=== PATIENT | male | born 1975 | race American Indian/Alaskan Native ===

== ENCOUNTER 2019-06-04 15:58 | Inpatient (IN) | payer BC ==
[2019-06-04] MEDS ORDERED: ASPIRIN 81 MG TAB CHEW PO ONE (16:32)
--- NOTE | 2019-06-04 16:35 | Cat Scan Report ---
CT head/brain wo con INDICATION / CLINICAL INFORMATION: 43 years Male; neuro deficits <6hrs or sx present upon awakening. TECHNIQUE: Routine CT head without contrast. All CT scans at this location are performed using CT dos e reduction for ALARA by means of automated exposure control. COMPARISON: None. FINDINGS: BRAIN / INTRACRANIAL CONTENTS: No acute hemorrhage, mass effect, midline shift, hydrocephalus, or acu te, large territorial infarct. No chronic infarct or atrophy appreciated. No significant white matter abnormality. CRANIOCERVICAL JUNCTION: No significant abnormality. ORBITS: No significant abnormality of visualized orbits. SINUSES / MASTOIDS: No significant abnormality the visualized paranasal sinuses or mastoid air cells. ADDITIONAL FINDINGS: None. IMPRESSION: 1. No focal mass, hemorrhage, hydrocephalus, or acute, large territorial infarct. This exam was performed as part of a code stroke protocol. The exam was completed on 06/04/2019 3:23 P M. The exam was reviewed at 3:[address] Kumar was notified at 3:30 PM. Signer Name: Nitin Smith MD, III Signed: 06/04/2019 4:30 PM Workstation Name: [id number]
[2019-06-04 16:40] LABS: BUN/Creatinine Ratio 10; Basophils % (Auto) 0.8 % (0.0-1.8); Blood Urea Nitrogen 10 mg/dL (9-20); Calcium 9.4 mg/dL (8.4-10.2); Eosinophils # (Auto) 0.2 K/mm3 (0.0-0.4); Eosinophils % (Auto) 4.3 % (0.0-4.3); Hematocrit 41.7 % (35.5-45.6); Hemoglobin 14.2 gm/dl (11.8-15.2); Hemolysis Index 37; Lymphocytes # (Auto) 1.1 K/mm3 (1.2-5.4); Lymphocytes % (Auto) 18.6 % (13.4-35.0); Mean Corpuscular HGB Conc 34 % (32-34); Mean Corpuscular Volume 85 fl (84-94); Monocytes # (Auto) 0.6 K/mm3 (0.0-0.8); Monocytes % (Auto) 10.6 % (0.0-7.3); Platelet Count 202 K/mm3 (140-440); Red Blood Count 4.93 M/mm3 (3.65-5.03); Red Cell Distribution Width 13.4 % (13.2-15.2)
[2019-06-04 16:42] LABS: INR 1.05 (0.87-1.13)
[2019-06-04 16:43] LABS: Partial Thromboplastin Time 26.9 Sec. (24.2-36.6); Thrombin Time 15.6 Sec. (15.1-19.6)
--- NOTE | 2019-06-04 17:03 | Emergency Department Report ---
HPI - General Chief Complaint: Neuro Symptoms/Deficit Time Seen by Provider: 06/04/19 16:31 - HPI HPI: [facility] Tele[facility] Date of Service: 06/04/2019 16:08:27 Impression: RO Acute Ischemic Stroke Comments: Patient with hx of headache and concussion now with improving monocular blurred vision with nausea and left face numbness. Suspect acephalgic migraine but new onset facial numbness never experienced with previous headaches. Discussed with him in regards to iv alteplase and with nihss 1 for facial numbness, he felt more comfortable with conservative therapy rather than thrombolytics given his non disabling paresthesia. Low suspicion for large vessel occlusive disease by clinical assessment. Metrics: Last Known Well: 06/04/2019 15:30:00 [facility] Notification Time: 06/04/2019 16:07:45 Arrival Time: 06/04/2019 15:58:00 Stamp Time: 06/04/2019 16:08:27 Time First Login Attempt: 06/04/2019 16:14:51 Video Start Time: 06/04/2019 16:14:51 Symptoms: head numbness/blurred vision left eye NIHSS Start Assessment Time: 06/04/2019 16:17:00 Patient is not a candidate for tPA. Patient was not deemed candidate for tPA thrombolytics because of Resolved symptoms. Video End Time: 06/04/2019 16:26:00 CT head showed no acute hemorrhage or acute core infarct. Advanced imaging was not obtained as the presentation was not suggestive of Large Vessel Occlusive Disease. ED Physician notified of diagnostic impression and management plan on 06/04/2019 16:27:00 Our recommendations are outlined below. Recommendations: Activate Stroke Protocol Admission/Order Set Stroke/Telemetry Floor Neuro Checks Bedside Swallow Eval DVT Prophylaxis IV Fluids, Normal Saline Head of Bed Below 30 Degrees Euglycemia and Avoid Hyperthermia (PRN Acetaminophen) Antiplatelet Therapy Recommended Recommended Scan: MRI Head MRI Head Without Contrast Lipid Panel to Be Obtained, if Not Done in the Last Three Months Therapies: Physical Therapy, Occupational Therapy, Speech Therapy Assessment When Applicable Dysphaghia Screen: Swallow Evaluation, Bedside NPO Until Swallow Evaluation DVT prophylaxis: Choice of Primary Team Disposition: If needed consider inpatient Teleneurology Follow up Sign Out: Discussed with Emergency Department Provider History of Present Illness: Patient is a 43 year old Male. Patient was brought by private transportation with symptoms of head numbness/blurred vision left eye Patient with acute onset of blurred vision and difficulty with opening left eye. He felt dizziness and tingling in back head. He states vision is blurry in left eye only and at this time no headache. He denies diabetes, hypertension, hld. He takes pain meds since having tooth extraction 1 week ago. He states no headaches but on further questioning admits he had has concussion in hte past and 3 weeks ago had migraine type headache with throbbing head pain, nausea and light sensitivity. CT head showed no acute hemorrhage or acute core infarct. Examination: BP(131/77), Pulse(60), Blood Glucose(96) 1A: Level of Consciousness - Alert; keenly responsive + 0 1B: Ask Month and Age - Both Questions Right + 0 1C: Blink Eyes & Squeeze Hands - Performs Both Tasks + 0 2: Test Horizontal Extraocular Movements - Normal + 0 3: Test Visual Lawson - No Visual Loss + 0 4: Test Facial Palsy (Use Grimace if Obtunded) - Normal symmetry + 0 5A: Test Left Arm Motor Drift - No Drift for 10 Seconds + 0 5B: Test Right Arm Motor Drift - No Drift for 10 Seconds + 0 6A: Test Left Leg Motor Drift - No Drift for 5 Seconds + 0 6B: Test Right Leg Motor Drift - No Drift for 5 Seconds + 0 7: Test Limb Ataxia (FNF/Heel-Leavitt) - No Ataxia + 0 8: Test Sensation - Mild-Moderate Loss: Less Sharp/More Dull + 1 9: Test Language/Aphasia - Normal; No aphasia + 0 10: Test Dysarthria - Normal + 0 11: Test Extinction/Inattention - No abnormality + 0 NIHSS Score: 1 Patient was informed the Neurology Consult would happen via TeleHealth consult by way of interactive audio and video telecommunications and consented to receiving care in this manner. Due to the immediate potential for life-threatening deterioration due to underly ing acute neurologic illness, I spent 35 minutes providing critical care. This time includes time for face to face visit via telemedicine, review of medical records, imaging studies and discussion of findings with providers, the patient and/or family. Dr Yanira Field [facility] ED Past Medical Hx - Past Medical History Previous Medical History?: No - Surgical History Past Surgical History?: No - Social History Smoking Status: Never Smoker Substance Use Type: None - Medications Home Medications: Home Medications Medication Instructions Recorded Confirmed Last Taken Type Hyoscyamine Subl [Levsin Sl 0.125 0.125 mg SL Q6HR PRN #14 tablet 02/21/15 Unknown Rx TAB] Ondansetron [Zofran Odt] 4 mg PO Q4H PRN #20 tab.rapdis 02/21/15 Unknown Rx traMADoL [Ultram] 50 mg PO Q6HR PRN #14 tablet 02/21/15 Unknown Rx ED Review of Systems ROS: Stated complaint: BLURR VISION/DIZZY/LT EYE SHUT Other details as noted in HPI Physical Exam - Physical Exam Vital Signs: Vital Signs 06/04/19 06/04/19 16:28 16:41 Pulse Rate 60 Respiratory 16 Rate Blood Pressure 131/77 119/80 [Right] O2 Sat by Pulse 100 Oximetry ED Course Vital Signs 06/04/19 06/04/19 16:28 16:41 Pulse Rate 60 Respiratory 16 Rate Blood Pressure 131/77 119/80 [Right] O2 Sat by Pulse 100 Oximetry ED Medical Decision Making - Lab Data Result diagrams: 06/04/19 16:13 06/04/19 16:13 Critical care attestation.: If time is entered above; I have spent that time in minutes in the direct care of this critically ill patient, excluding procedure time. ED Disposition Clinical Impression: TIA (transient ischemic attack) Disposition: [id number] OP ADMIT IP TO THIS HOSP Is pt being admited?: Yes Does the pt Need Aspirin: Yes Condition: Stable
--- NOTE | 2019-06-04 17:14 | History and Physical Report ---
History of Present Illness Chief complaint: My vision was blurry and I feel weak History of present illness: 43-year-old male with obesity presents to ED for evaluation. Patient states that he experienced sudden onset left-sided numbness weakness, and blurred vision today while sitting on his couch and watching television. Patient reports symptom onset at 1630 hrs. Patient transported to [facility] via private vehicle for further care and evaluation. Patient seen and evaluated in the emergency department and upon arrival a code stroke was called. Tele-neurology was consulted. Lab and imaging studies reviewed. Patient found to have symptoms that were suspicious for CVA. Patient placed in observation status and admitted to medical floor for further evaluation.. Neurology team consulted in ED. Patient initiated on CVA protocol. Patient denies fever, chills, chest pain, palpitations, syncope, dizziness, loss of bowel/bladder continence, vertigo, loss of consciousness, skin rash, or recent ill contacts. No prior admission for review. No medication listed for reconciliation at time of admission. Past History Past Medical History: other (See HPI) Past Surgical History: No surgical history, Other (Reviewed) Social history: , lives with family. denies: smoking, alcohol abuse, prescription drug abuse Family history: hypertension Medications and Allergies Allergies Allergy/AdvReac Type Severity Reaction Status Date / Time sulfamethoxazole Allergy Rash Verified 02/20/15 20:52 [From Bactrim] trimethoprim [From Bactrim] Allergy Rash Verified 02/20/15 20:52 Home Medications Medication Instructions Recorded Confirmed Last Taken Type Hyoscyamine Subl [Levsin Sl 0.125 0.125 mg SL Q6HR PRN #14 tablet 02/21/15 Unknown Rx TAB] Ondansetron [Zofran Odt] 4 mg PO Q4H PRN #20 tab.rapdis 02/21/15 Unknown Rx traMADoL [Ultram] 50 mg PO Q6HR PRN #14 tablet 02/21/15 Unknown Rx Review of Systems Constitutional: no weight loss, no weight gain, no fever, no chills Ears, nose, mouth and throat: no ear pain, no ear discharge, no decreased hearing, no nasal discharge, no sinus pressure Cardiovascular: no chest pain, no orthopnea, no palpitations, no rapid/irregular heart beat, no edema, no lightheadedness Respiratory: no cough, no cough with sputum, no excessive sputum Gastrointestinal: no abdominal pain, no nausea, no vomiting, no diarrhea, no change in bowel habits Genitourinary Male: no dysuria, no hematuria, no discharge, no urinary frequency, no nocturia, no incontinence Rectal: no pain, no incontinence, no bleeding Musculoskeletal: no neck stiffness, no shooting arm pain, no low back pain, no shooting leg pain Integumentary: no rash, no pruritis, no sores Neurological: weakness, numbness, ataxia, lack of coordination, change in speech, confusion, no head injury, no transient paralysis, no tingling, no convulsions Psychiatric: no anxiety, no memory loss, no change in sleep habits, no insomnia, no change in appetite, no suicidal ideation Endocrine: no heat intolerance, no polyphagia, no polydipsia Hematologic/Lymphatic: no easy bruising, no easy bleeding, no lymphadenopathy, no lymphedema Allergic/Immunologic: no urticaria, no allergic rhinitis, no wheezing, no persistent infections, no anaphylaxis, no angioedema Exam - Constitutional Vitals: Temp Pulse Resp BP Pulse Ox 60 16 119/80 100 06/04/19 16:28 06/04/19 16:28 06/04/19 16:41 06/04/19 16:28 General appearance: Present: no acute distress, well-nourished - EENT Eyes: Present: PERRL ENT: hearing intact, clear oral mucosa - Neck Neck: Present: supple, normal ROM - Respiratory Respiratory effort: normal Respiratory: bilateral: CTA - Cardiovascular Heart Sounds: Present: S1 & S2. Absent: rub, click - Extremities Extremities: pulses symmetrical, No edema Peripheral Pulses: within normal limits - Abdominal General gastrointestinal: Present: soft, non-tender, non-distended, normal bowel sounds Male genitourinary: Present: normal - Integumentary Integumentary: Present: clear, warm, dry - Musculoskeletal Musculoskeletal: gait normal, strength equal bilaterally - Psychiatric Psychiatric: appropriate mood/affect, intact judgment & insight - Neurologic Neurologic: CNII-XII intact, moves all extremities Results - Labs CBC & Chem 7: 06/04/19 16:13 06/04/19 16:13 Labs: Abnormal lab results 06/04/19 Range/Units 16:13 [place] % (Auto) 10.6 H (0.0-7.3) % Lymph # 1.1 L (1.2-5.4) K/mm3 Assessment and Plan - Patient Problems (1) CVA (cerebral vascular accident) Current Visit: Yes Status: Suspected Qualifiers: Laterality of affected vessel: unspecified Plan to address problem: CVA protocol: CT head, neuro check, carotid Doppler, echocardiogram, antiplatelet therapy, PT/OT/speech therapy, lipid panel, statin therapy. Balanced diet increase physical activity at discharge. Tele-neurology consulted in ED, neurology consulted. (2) Obesity (BMI 30.0-34.9) Current Visit: Yes Status: Acute Plan to address problem: Balanced diet, increase physical activity at discharge. (3) DVT prophylaxis Current Visit: Yes Status: Acute Plan to address problem: SCD to bilateral lower extremities while in bed, patient is ambulatory
[2019-06-04] MEDS ORDERED: ONDANSETRON 4 MG ODT TAB PO PRN (17:18)
--- NOTE | 2019-06-04 18:10 | Emergency Department Report ---
ED Neuro Deficit HPI - General Chief Complaint: Neuro Symptoms/Deficit Stated Complaint: BLURR VISION/DIZZY/LT EYE SHUT Time Seen by Provider: 06/04/19 16:31 Source: patient Mode of arrival: Wheelchair Limitations: No Limitations - History of Present Illness Initial Comments: Mr. Schumacher is a healthy 43-year-old male without significant past medical history who presents with sudden onset of left-sided numbness and weakness of the left eyelid blurred vision on the left side, nausea. Also had posterior numbness in the head. He was sitting on the couch reading about the local news with the symptoms suddenly happened. He immediately asked his to drive him to the emergency department. Symptoms occurred 15 minutes prior to arrival. Which would be approximately 4:30 to 445 PM. He is followed by PCP in [place]. He receives regular physical exams. There is family history of hypertension diabetes. 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 He did experience several concussions to his football play. -: Sudden, This evening Location: left face, other (left eye blurry vision) Presenting Symptoms: Present: Blurred/Loss of Vision History of same: No Place: home Severity: mild Improves With: time Worsens With: none On Anticoagulants: No Context: sudden onset Associated Symptoms: denies other symptoms - Related Data Home Medications: Previous Rx's Medication Instructions Recorded Last Taken Type Hyoscyamine Subl [Levsin Sl 0.125 0.125 mg SL Q6HR PRN #14 tablet 02/21/15 Unknown Rx TAB] Ondansetron [Zofran Odt] 4 mg PO Q4H PRN #20 tab.rapdis 02/21/15 Unknown Rx traMADoL [Ultram] 50 mg PO Q6HR PRN #14 tablet 02/21/15 Unknown Rx Allergies/Adverse Reactions: Allergies Allergy/AdvReac Type Severity Reaction Status Date / Time sulfamethoxazole Allergy Rash Verified 02/20/15 20:52 [From Bactrim] trimethoprim [From Bactrim] Allergy Rash Verified 02/20/15 20:52 ED Review of Systems ROS: Stated complaint: BLURR VISION/DIZZY/LT EYE SHUT Other details as noted in HPI Comment: All other systems reviewed and negative Constitutional: denies: fever, malaise Respiratory: denies: cough Cardiovascular: denies: chest pain Gastrointestinal: nausea. denies: abdominal pain Neurological: headache, numbness, paresthesias, other (left eye blurry vision) ED Past Medical Hx - Past Medical History Previous Medical History?: No - Surgical History Past Surgical History?: No - Family History Family history: diabetes, hypertension - Social History Smoking Status: Never Smoker Substance Use Type: None - Medications Home Medications: Home Medications Medication Instructions Recorded Confirmed Last Taken Type Hyoscyamine Subl [Levsin Sl 0.125 0.125 mg SL Q6HR PRN #14 tablet 02/21/15 Unknown Rx TAB] Ondansetron [Zofran Odt] 4 mg PO Q4H PRN #20 tab.rapdis 02/21/15 Unknown Rx traMADoL [Ultram] 50 mg PO Q6HR PRN #14 tablet 02/21/15 Unknown Rx ED Neuro Physical Exam - General Limitations: No Limitations General appearance: alert, in no apparent distress Suspected Stroke: Yes - Head Head exam: Present: atraumatic, normocephalic - Eye Eye exam: Present: normal appearance - ENT ENT exam: Present: mucous membranes moist - Neck Neck exam: Present: normal inspection, full ROM. Absent: tenderness, meningismus - Respiratory Respiratory exam: Present: normal lung sounds bilaterally. Absent: respiratory distress, wheezes, rales, rhonchi, stridor - Cardiovascular Cardiovascular Exam: Present: regular rate, normal rhythm, normal heart sounds. Absent: systolic murmur, diastolic murmur, rubs, gallop - GI/Abdominal GI/Abdominal exam: Present: soft, normal bowel sounds. Absent: distended, tend erness, guarding, rebound - Rectal Rectal exam: Present: deferred - Extremities Exam Extremities exam: Present: normal inspection - Neurological Exam Neurological exam: Present: alert, oriented X3 - NIHSS Assessment Interval: Baseline 1a. Level of Consciousness: alert/keenly responsive 1b. LOC Questions: answers both correctly 1c. LOC Commands: performs tasks correctly 2. Best Gaze: normal 3. Visual: no visual loss 4. Facial Palsy: normal symmetrical movement 5b. Motor Arm Right: no drift 5a. Motor Arm Left: no drift 6a. Motor Leg Left: no drift 6b. Motor Leg Right: no drift 7. Limb Ataxia: absent 8. Sensory: mild/moderate sensory loss 9. Best Language: no aphasia 10. Dysarthria: normal 11. Extinction/Inattention: no abnormality Total Score: 1 Stroke Severity: Minor Stroke - Psychiatric Psychiatric exam: Present: normal affect, normal mood - Skin Skin exam: Present: warm, dry, intact, normal color. Absent: rash ED Course Vital Signs 06/04/19 06/04/19 06/04/19 16:28 16:41 17:25 Pulse Rate 60 60 Respiratory 16 16 Rate Blood Pressure 131/77 119/80 127/73 [Right] O2 Sat by Pulse 100 98 Oximetry - Lab Data Result diagrams: 06/04/19 16:13 06/04/19 16:13 Lab Results 06/04/19 06/04/19 06/04/19 Range/Units 16:13 16:13 16:13 WBC 5.7 (4.5-11.0) K/mm3 RBC 4.93 (3.65-5.03) M/mm3 Hgb 14.2 (11.8-15.2) gm/dl Hct 41.7 (35.5-45.6) % MCV 85 (84-94) fl MCH 29 (28-32) pg MCHC 34 (32-34) % RDW 13.4 (13.2-15.2) % Plt Count 202 (140-440) K/mm3 Lymph % (Auto) 18.6 (13.4-35.0) % [place] % (Auto) 10.6 H (0.0-7.3) % Eos % (Auto) 4.3 (0.0-4.3) % Baso % (Auto) 0.8 (0.0-1.8) % Lymph # 1.1 L (1.2-5.4) K/mm3 [place] # 0.6 (0.0-0.8) K/mm3 Eos # 0.2 (0.0-0.4) K/mm3 Baso # 0.0 (0.0-0.1) K/mm3 Seg Neutrophils % 65.7 (40.0-70.0) % Seg Neutrophils # 3.7 (1.8-7.7) K/mm3 PT 13.8 (12.2-14.9) Sec. INR 1.05 (0.87-1.13) APTT 26.9 (24.2-36.6) Sec. Thrombin Time 15.6 (15.1-19.6) Sec. Sodium 141 (137-145) mmol/L Potassium 4.1 (3.6-5.0) mmol/L Chloride 102.6 (98-107) mmol/L Carbon Dioxide 27 (22-30) mmol/L Anion Gap 16 mmol/L BUN 10 (9-20) mg/dL Creatinine 1.0 (0.8-1.5) mg/dL Estimated GFR > 60 ml/min BUN/Creatinine Ratio 10 % Glucose 96 (75-100) mg/dL POC Glucose (70-105) Calcium 9.4 (8.4-10.2) mg/dL Troponin T < 0.010 (0.00-0.029) ng/mL 06/04/19 06/04/19 Range/Units 16:15 16:31 WBC (4.5-11.0) K/mm3 RBC (3.65-5.03) M/mm3 Hgb (11.8-15.2) gm/dl Hct (35.5-45.6) % MCV (84-94) fl MCH (28-32) pg MCHC (32-34) % RDW (13.2-15.2) % Plt Count (140-440) K/mm3 Lymph % (Auto) (13.4-35.0) % [place] % (Auto) (0.0-7.3) % Eos % (Auto) (0.0-4.3) % Baso % (Auto) (0.0-1.8) % Lymph # (1.2-5.4) K/mm3 [place] # (0.0-0.8) K/mm3 Eos # (0.0-0.4) K/mm3 Baso # (0.0-0.1) K/mm3 Seg Neutrophils % (40.0-70.0) % Seg Neutrophils # (1.8-7.7) K/mm3 PT (12.2-14.9) Sec. INR (0.87-1.13) APTT (24.2-36.6) Sec. Thrombin Time (15.1-19.6) Sec. Sodium (137-145) mmol/L Potassium (3.6-5.0) mmol/L Chloride (98-107) mmol/L Carbon Dioxide (22-30) mmol/L Anion Gap mmol/L BUN (9-20) mg/dL Creatinine (0.8-1.5) mg/dL Estimated GFR ml/min BUN/Creatinine Ratio % Glucose (75-100) mg/dL POC Glucose 97 82 (70-105) Calcium (8.4-10.2) mg/dL Troponin T (0.00-0.029) ng/mL - EKG Data EKG shows normal: sinus rhythm, axis, intervals, QRS complexes, ST-T waves Rate: normal Interpretation: normal EKG - Radiology Data Radiology results: report reviewed CT head no acute findings - Medical Decision Making Mr. Schumacher presents with blurry vision left eye, numbness paresthesias left face and inability to open the left eye with. Also has posterior occipital numbness. Highly appreciate the assistance of neurologist. Differential diagnosis includes: TIA, atypical migraine, he received aspirin. Symptoms rapidly improved while in the emergency department. Admitted to the hospital service for TIA evaluation. TPA was offered by teleneurologist. Now Symptoms Have significantly Improved, TPA Is Not Currently Indicated. Critical care attestation.: If time is entered above; I have spent that time in minutes in the direct care of this critically ill patient, excluding procedure time. ED Disposition Clinical Impression: TIA (transient ischemic attack) Disposition: 09 OP ADMIT IP TO THIS HOSP Is pt being admited?: Yes Does the pt Need Aspirin: No Condition: Stable
--- NOTE | 2019-06-05 10:13 | Progress Note ---
Assessment and Plan Assessment and plan: CVA/TIA. Patient symptoms have resolved. Follow-up echocardiogram and carotid ultrasound. CT scan of the head negative. Consider MRI. Neurology consultation pending. Obesity. Balanced diet, increase physical activity at discharge. History Interval history: No new issues overnight. Hospitalist Physical - Constitutional Vitals: Temp Pulse Resp BP Pulse Ox 98.0 F 57 L 20 130/85 98 06/05/19 05:13 06/05/19 05:13 06/05/19 05:13 06/05/19 05:13 06/05/19 07:47 General appearance: Present: no acute distress, well-nourished - EENT Eyes: Present: PERRL, EOM intact ENT: hearing intact, clear oral mucosa, dentition normal - Neck Neck: Present: supple, normal ROM - Respiratory Respiratory effort: normal Respiratory: bilateral: CTA - Cardiovascular Rhythm: regular Heart Sounds: Present: S1 & S2. Absent: gallop, rub - Extremities Extremities: no ischemia, No edema, Full ROM - Abdominal General gastrointestinal: soft, non-tender, non-distended, normal bowel sounds - Integumentary Integumentary: Present: clear, warm, dry - Neurologic Neurologic: CNII-XII intact, moves all extremities Results - Labs CBC & Chem 7: 06/04/19 16:13 06/04/19 16:13 Labs: Laboratory Last Values WBC 5.7 K/mm3 (4.5-11.0) 06/04/19 16:13 RBC 4.93 M/mm3 (3.65-5.03) 06/04/19 16:13 Hgb 14.2 gm/dl (11.8-15.2) 06/04/19 16:13 Hct 41.7 % (35.5-45.6) 06/04/19 16:13 MCV 85 fl (84-94) 06/04/19 16:13 MCH 29 pg (28-32) 06/04/19 16:13 MCHC 34 % (32-34) 06/04/19 16:13 RDW 13.4 % (13.2-15.2) 06/04/19 16:13 Plt Count 202 K/mm3 (140-440) 06/04/19 16:13 Lymph % (Auto) 18.6 % (13.4-35.0) 06/04/19 16:13 [place] % (Auto) 10.6 % (0.0-7.3) H 06/04/19 16:13 Eos % (Auto) 4.3 % (0.0-4.3) 06/04/19 16:13 Baso % (Auto) 0.8 % (0.0-1.8) 06/04/19 16:13 Lymph # 1.1 K/mm3 (1.2-5.4) L 06/04/19 16:13 [place] # 0.6 K/mm3 (0.0-0.8) 06/04/19 16:13 Eos # 0.2 K/mm3 (0.0-0.4) 06/04/19 16:13 Baso # 0.0 K/mm3 (0.0-0.1) 06/04/19 16:13 Seg Neutrophils % 65.7 % (40.0-70.0) 06/04/19 16:13 Seg Neutrophils # 3.7 K/mm3 (1.8-7.7) 06/04/19 16:13 PT 13.8 Sec. (12.2-14.9) 06/04/19 16:13 INR 1.05 (0.87-1.13) 06/04/19 16:13 APTT 26.9 Sec. (24.2-36.6) 06/04/19 16:13 Thrombin Time 15.6 Sec. (15.1-19.6) 06/04/19 16:13 Sodium 141 mmol/L (137-145) 06/04/19 16:13 Potassium 4.1 mmol/L (3.6-5.0) 06/04/19 16:13 Chloride 102.6 mmol/L (98-107) 06/04/19 16:13 Carbon Dioxide 27 mmol/L (22-30) 06/04/19 16:13 Anion Gap 16 mmol/L 06/04/19 16:13 BUN 10 mg/dL (9-20) 06/04/19 16:13 Creatinine 1.0 mg/dL (0.8-1.5) 06/04/19 16:13 Estimated GFR > 60 ml/min 06/04/19 16:13 BUN/Creatinine Ratio 10 % 06/04/19 16:13 Glucose 96 mg/dL (75-100) 06/04/19 16:13 POC Glucose 82 (70-105) 06/04/19 16:31 Calcium 9.4 mg/dL (8.4-10.2) 06/04/19 16:13 Troponin T < 0.010 ng/mL (0.00-0.029) 06/04/19 16:13 Active Medications - Current Medications Current Medications: Generic Name Dose Route Start Last Admin Trade Name Freq PRN Reason Stop Dose Admin Ondansetron HCl 4 mg 06/04/19 17:18 Zofran Odt PO Q4H PRN nausea/vomiting
[2019-06-05] MEDS ORDERED: MECLIZINE 25 MG TAB PO PRN (13:10)
--- NOTE | 2019-06-05 18:00 | Vascular Lab Report ---
"DUPLEX DOPPLER ULTRASOUND CAROTID, BILATERAL INDICATION / CLINICAL INFORMATION: CVA. Slurred speech with left-sided numbness. COMPARISON: None available. FINDINGS: RIGHT CAROTID PLAQUE ESTIMATE: Minimal. CCA velocity: 109.2 cm/sec. ICA peak systolic velocity: 93.8 cm/sec. ICA/CCA PSV Ratio: 0.86. Right Vertebral Artery: Antegrade flow. LEFT CAROTID PLAQUE ESTIMATE: Minimal. CCA velocity: 122.3 cm/sec. ICA peak systolic velocity: 78.1 cm/sec. ICA/CCA PSV Ratio: 0.64. Left Vertebral Artery: Antegrade flow. IMPRESSION: 1. Right Internal Carotid Artery: Less than 50% diameter stenosis. 2. Left Internal Carotid Artery: Less than 50% diameter stenosis. Velocity criteria are extrapolated from diameter data as defined by the Society of Radiologists in Ul trasound Consensus Conference, Radiology 2003; 229;340-346. Degree of || ICA PSV || Plaque || ICA/CCA Stenosis (%) || (cm/sec) || estimate (%) || PSV Ratio - Normal...............<125..............None.................<2.0 - <50....................<125..............<50....................<2.0 - 50-69................125-230.........>50....................2.0-4.0 - >70 but <100....>230..............>50....................>4.0 - Near...................High, low, .....visible................variable occlusion or none - Total...................None.............visible;................N/A occlusion no lumen Signer Name: Josh Pratt MD Signed: 06/05/2019 5:56 PM Workstation Name: [id number]"
--- NOTE | 2019-06-05 18:21 | Consultation ---
History of Present Illness Consult date: 06/05/19 Reason for Consult: monocular blurred vision, left face numbness Chief complaint: Left-sided blurred vision, left face numbness History of present illness: Patient is a 43-year-old man with no significant past medical history. Yesterday, the patient was watching TV when he sent sudden onset of drooping of the left eyelid, followed by blurred vision of the left eye. He describes symptoms similar to having a curtain pulled over his left eye. Patient was also complaining of intermittent dizziness of the time. He was brought to [facility] for further evaluation. He was evaluated by telemetry neurologist, however was not felt to be a good candidate for TPA, due to NIH of 1 for left facial numbness. 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 He denies a chronic history of headache or migraines, however states that over the past 1- 2 weeks he has had mild headaches. Headaches over the past 1-2 weeks of an mostly in the occipital region, no phonophobia or photophobia. Past History Past Medical History: other (See HPI) Past Surgical History: No surgical history, Other (Reviewed) Social history: , lives with family. denies: smoking, alcohol abuse, prescription drug abuse Family history: hypertension Medications and Allergies Allergies Allergy/AdvReac Type Severity Reaction Status Date / Time sulfamethoxazole Allergy Rash Verified 02/20/15 20:52 [From Bactrim] trimethoprim [From Bactrim] Allergy Rash Verified 02/20/15 20:52 Home Medications Medication Instructions Recorded Confirmed Last Taken Type Hyoscyamine Subl [Levsin Sl 0.125 0.125 mg SL Q6HR PRN #14 tablet 02/21/15 Unknown Rx TAB] Ondansetron [Zofran Odt] 4 mg PO Q4H PRN #20 tab.rapdis 02/21/15 Unknown Rx traMADoL [Ultram] 50 mg PO Q6HR PRN #14 tablet 02/21/15 Unknown Rx Active Meds: Active Medications Meclizine HCl (Antivert) 25 mg PO Q8H PRN PRN Reason: Vertigo Last Admin: 06/05/19 13:23 Dose: 25 mg Documented by: Ondansetron HCl (Zofran Odt) 4 mg PO Q4H PRN PRN Reason: nausea/vomiting Review of Systems All systems: negative Neurological: numbness, loss of vision Physical Examination - Vital Signs Vital Signs: Vital Signs Pulse Resp BP Pulse Ox 60 16 131/77 100 06/04/19 16:28 06/04/19 16:28 06/04/19 16:28 06/04/19 16:28 - Physical Exam Narrative exam: Patient is alert, awake, oriented x4, follows complex commands. PERRL, EOMI, VFF, no facial weakness noted, tongue midline, b/l intact to LT. No dysarthria or aphasia noted. 5/5 strength in all extremities. B/l intact to LT. B/l intact to FTN and HTS. 2+ reflexes throughout. - Constitutional General appearance: comfortable - EENT EENT: Present: ATNC, PERRL, mucous membranes moist, hearing intact, vision intact - Respiratory Respiratory: Present: lungs clear, normal breath sounds - Cardiovascular Cardiovascular: Present: regular rate, normal S1, normal S2 Extremities: Present: no clubbing, cyanosis, no inflammation - Gastrointestinal Gastrointestinal: Present: normoactive bowel sounds, soft, non-tender - Integumentary Integumentary: Present: normal - Musculoskeletal Musculoskeletal: Present: no fluid collection, no pain - Psychiatric Psychiatric: Present: mood/affect appropriate - Level of Consciousness 1a. Level of Consciousness: alert/keenly responsive - LOC Questions 1b. LOC Questions: answers both correctly - LOC Command 1c. LOC Commands: performs tasks correctly - Best Gaze 2. Best Gaze: normal - Visual 3. Visual: no visual loss - Facial Palsy 4. Facial Palsy: normal symmetrical movement - Motor Arm 5a. Motor Arm Left: no drift 5b. Motor Arm Right: no drift - Motor Leg 6a. Motor Leg Left: no drift 6b. Motor Leg Right: no drift - Limb Ataxia 7. Limb Ataxia: absent - Sensory 8. Sensory: normal - Best Language 9. Best Language: no aphasia - Dysarthria 10. Dysarthria: normal - Extinction and Inattention 11. Extinction/Inattention: no abnormality - Scoring Total Score: 0 Stroke Severity: No Stroke Symptoms Results - Laboratory Findings CBC and BMP: 06/04/19 16:13 06/04/19 16:13 Abnormal Lab Findings: Abnormal Labs 06/04/19 16:13 [place] % (Auto) 10.6 H Lymph # 1.1 L Assessment and Plan Patient is a 43-year-old man with no significant past medical history, who p/w blurry vision of the left eye and left facial numbness, which resolved. According the patient's clinical findings, discussed possible that the patient has had a TIA with symptoms resembling amaurosis fugax. Alternatively, the patient may have had a migraine with visual symptoms, however this is less likely as the patient does not have a previous history of migraines. Plan: 1. Possible TIA: - MRI brain pending. CT head: No acute abnormality. Carotid ultrasound: No significant stenosis. - Echo pending - Check CTA head and neck to rule out dissection - Continue ASA - Continue statin. Goal LDL <70 - Telemetry monitoring while in house. - PT/OT/ST. - DVT prophylaxis: Recommend Lovenox. 2. Blood pressure: - Recommend target normotension, as patient's symptoms have resolved. - Will continue to monitor patient Thank you for allowing me to take part in the care of this patient. Jv Goodman MD Neurology
[2019-06-05 19:04] LABS: Chol/HDL Ratio 2.58 %
[2019-06-06] MEDS: ASPIRIN EC 81 MG TAB PO SCH (09:17)
[2019-06-06] MEDS ORDERED: ASPIRIN EC 81 MG TAB PO SCH (10:00)
--- NOTE | 2019-06-06 13:40 | Progress Note ---
Assessment and Plan Patient is a 43-year-old man with no significant past medical history, who p/w blurry vision of the left eye and left facial numbness, which resolved. According the patient's clinical findings, he has had an acute ischemic stroke.. Plan: 1. Possible TIA: - MRI brain: Left thalamic acute infarct CT head: No acute abnormality. Carotid ultrasound: No significant stenosis. - Echo: EF 55-60%, LA normal size, bubble study -ve. - Check CTA head and neck to rule out dissection- Pending - Continue ASA - Continue statin. Goal LDL <70. LDL 84. - Telemetry monitoring while in house. - PT/OT/ST. - DVT prophylaxis: Recommend Lovenox. 2. Blood pressure: - Recommend target normotension, as patient's symptoms have resolved. - Will continue to monitor patient Thank you for allowing me to take part in the care of this patient. Jv Goodman MD Neurology Subjective Date of service: 06/06/19 Principal diagnosis: Stroke Interval history: No acute events overnight Objective - Exam Narrative Exam: Patient is alert, awake, oriented x4, follows complex commands. PERRL, EOMI, VFF, no facial weakness noted, tongue midline, b/l intact to LT. No dysarthria or aphasia noted. 5/5 strength in all extremities. B/l intact to LT. B/l intact to FTN and HTS. 2+ reflexes throughout. - Vital Sign Vital Signs - 12hr 06/06/19 06/06/19 04:03 07:56 Temperature 97.9 F Pulse Rate 64 Respiratory 18 Rate Blood Pressure 108/65 O2 Sat by Pulse 97 97 Oximetry - General Apperance Constitutional: comfortable - EENT EENT: ATNC, PERRL, mucous membranes moist, hearing intact, vision intact - Respiratory Respiratory: lungs clear, normal breath sounds - Cardiovascular Cardiovascular: regular rate, normal S1, normal S2 Extremities: no clubbing, cyanosis, no inflammation - Gastrointestinal Gastrointestinal: normoactive bowel sounds, soft, non-tender - Integumentary Integumentary: normal - Musculoskeletal Musculoskeletal: no fluid collection, no pain - Psychiatric Psychiatric: mood/affect appropriate - Laboratory Findings CBC and BMP: 06/04/19 16:13 06/04/19 16:13 Abnormal Lab Findings: Abnormal Labs 06/04/19 16:13 [place] % (Auto) 10.6 H Lymph # 1.1 L
--- NOTE | 2019-06-06 13:52 | Magnetic Resonance Report ---
MRI BRAIN 06/06/2019 INDICATION / CLINICAL INFORMATION: blurred vision, numness left side of face. TECHNIQUE: Multiplanar, multisequence MR images of the brain were obtained. COMPARISON: CT brain 06/04/2019 FINDINGS: BRAIN / INTRACRANIAL CONTENTS: Unenhanced MR images of the brain demonstrate a 9 mm focus of restrict ed diffusion in the medial aspect of the left thalamus, consistent with acute ischemic injury. No oth er areas of acute ischemic change are present. Ventricles and sulci are normal in size and shape. There is no evidence of hemorrhage or mass. The br ain parenchyma is otherwise well preserved for age. There are no abnormal extra-axial fluid collections. EXTRACRANIAL: Unremarkable CRANIOCERVICAL JUNCTION: No significant abnormality. VASCULAR FLOW-VOIDS: No significant abnormality. IMPRESSION: Acute/recent 9 mm left thalamic infarct. Otherwise the exam. Signer Name: Sven Mijares MD Signed: 06/06/2019 1:47 PM Workstation Name: [id number]
--- NOTE | 2019-06-07 03:33 | Progress Note ---
Assessment and Plan Assessment and plan: Acute ischemic stroke MRI shows acute left thalamic infarct Admitted to med floor Aspirin neurology following discussed with Dr. Goodman, neuro. he ordered CT Angio head and neck Obesity I counseled him on diet and exercise Patient not stable to dc since workup incomplete History Interval history: Patient presented with blurred vision left eye and left facial numbness Hospitalist Physical - Physical exam Narrative exam: GEN: Not in acute distress, lying in bed,obese HEENT: Normocephalic, atraumatic, Neck: supple, No JVD Lungs: Clear to auscultation bilaterally, no wheeze, heart;S1 and S2 reg, no murmurs Abd:soft, non tender, non distended, normal bowel sounds Ext: No edema, no clubbing, no cyanosis Neuro: AAO X 3, moves all ext - Constitutional Vitals: Temp Pulse Resp BP Pulse Ox 98.2 F 64 16 138/70 96 06/06/19 21:04 06/06/19 21:04 06/06/19 21:04 06/06/19 21:04 06/06/19 21:04 General appearance: Present: no acute distress, obese Results - Labs CBC & Chem 7: 06/04/19 16:13 06/04/19 16:13 Labs: Laboratory Last Values WBC 5.7 K/mm3 (4.5-11.0) 06/04/19 16:13 RBC 4.93 M/mm3 (3.65-5.03) 06/04/19 16:13 Hgb 14.2 gm/dl (11.8-15.2) 06/04/19 16:13 Hct 41.7 % (35.5-45.6) 06/04/19 16:13 MCV 85 fl (84-94) 06/04/19 16:13 MCH 29 pg (28-32) 06/04/19 16:13 MCHC 34 % (32-34) 06/04/19 16:13 RDW 13.4 % (13.2-15.2) 06/04/19 16:13 Plt Count 202 K/mm3 (140-440) 06/04/19 16:13 Lymph % (Auto) 18.6 % (13.4-35.0) 06/04/19 16:13 [place] % (Auto) 10.6 % (0.0-7.3) H 06/04/19 16:13 Eos % (Auto) 4.3 % (0.0-4.3) 06/04/19 16:13 Baso % (Auto) 0.8 % (0.0-1.8) 06/04/19 16:13 Lymph # 1.1 K/mm3 (1.2-5.4) L 06/04/19 16:13 [place] # 0.6 K/mm3 (0.0-0.8) 06/04/19 16:13 Eos # 0.2 K/mm3 (0.0-0.4) 06/04/19 16:13 Baso # 0.0 K/mm3 (0.0-0.1) 06/04/19 16:13 Seg Neutrophils % 65.7 % (40.0-70.0) 06/04/19 16:13 Seg Neutrophils # 3.7 K/mm3 (1.8-7.7) 06/04/19 16:13 PT 13.8 Sec. (12.2-14.9) 06/04/19 16:13 INR 1.05 (0.87-1.13) 06/04/19 16:13 APTT 26.9 Sec. (24.2-36.6) 06/04/19 16:13 Thrombin Time 15.6 Sec. (15.1-19.6) 06/04/19 16:13 Sodium 141 mmol/L (137-145) 06/04/19 16:13 Potassium 4.1 mmol/L (3.6-5.0) 06/04/19 16:13 Chloride 102.6 mmol/L (98-107) 06/04/19 16:13 Carbon Dioxide 27 mmol/L (22-30) 06/04/19 16:13 Anion Gap 16 mmol/L 06/04/19 16:13 BUN 10 mg/dL (9-20) 06/04/19 16:13 Creatinine 1.0 mg/dL (0.8-1.5) 06/04/19 16:13 Estimated GFR > 60 ml/min 06/04/19 16:13 BUN/Creatinine Ratio 10 % 06/04/19 16:13 Glucose 96 mg/dL (75-100) 06/04/19 16:13 POC Glucose 82 (70-105) 06/04/19 16:31 Calcium 9.4 mg/dL (8.4-10.2) 06/04/19 16:13 Troponin T < 0.010 ng/mL (0.00-0.029) 06/04/19 16:13 Triglycerides 143 mg/dL (2-149) 06/05/19 18:27 Cholesterol 150 mg/dL (50-199) 06/05/19 18:27 LDL Cholesterol Direct 84 mg/dL (50-130) 06/05/19 18:27 HDL Cholesterol 58 mg/dL (40-59) 06/05/19 18:27 Cholesterol/HDL Ratio 2.58 % 06/05/19 18:27 Active Medications - Current Medications Current Medications: Generic Name Dose Route Start Last Admin Trade Name Freq PRN Reason Stop Dose Admin Aspirin 81 mg 06/05/19 18:28 06/06/19 09:17 Halfprin Ec PO 81 mg QDAY ARVIND Administration Atorvastatin Calcium 40 mg 06/05/19 22:00 06/06/19 22:50 Lipitor PO 40 mg QHS ARVIND Administration Meclizine HCl 25 mg 06/05/19 13:10 06/05/19 13:23 Antivert PO 25 mg Q8H PRN Administration Vertigo Ondansetron HCl 4 mg 06/04/19 17:18 Zofran Odt PO Q4H PRN nausea/vomiting
--- NOTE | 2019-06-07 10:28 | Cat Scan Report ---
CTA head with intravenous contrast CLINICAL HISTORY: TIA. MRI brain 06/06/2019 demonstrates a small infarctions in the medial aspect of the left thalamus. TECHNIQUE: 0.625 mm thick contiguous axial scans were obtained from the skull base to the skull vertex during ra pid bolus administration of intravenous contrast material. Multiplanar reconstructions were produced in the coronal and sagittal planes. In addition 3 plane MIP instructions were produced and reviewed f or this report. The axial source images and reconstructed images were reviewed for this report. All CT scans at this location are performed using CT dose reduction for ALARA by means of automated e xposure control. FINDINGS: The caliber of the intracranial vessels is normal throughout. There is no indication of intracranial stenosis or large vessel occlusion. There is no indication of vasculitis. There is no evidence of aneurysm or other vascular malformation. Dural venous sinuses are well demonstrated on this study. There is no indication of dural sinus throm bosis. Internal cerebral veins and vein of Robin have a normal appearance. IMPRESSION: No abnormality identified on CTA head. CONTRAST DOSE REPORT: Omnipaque 350: 100 ml administered intravenously. Signer Name: Ashwin Sheriff MD Signed: 06/07/2019 10:24 AM Workstation Name: [id number]
--- NOTE | 2019-06-07 11:00 | Cat Scan Report ---
CTA neck without and with intravenous contrast material CLINICAL HISTORY: TIA MRI brain dated 06/06/2019 demonstrated subacute infarction in the medial aspect of the left wrist . TECHNIQUE: Following acquisition of a timing bolus 0.625 mm thick contiguous axial scans were obtained from aort ic arch to the skull base during rapid bolus intravenous contrast infusion. In addition to evaluation of axial source images multiplanar reconstructions were produced and reviewed for this report. 3 jules ne MIP reconstructions were produced and reviewed. FINDINGS: Thoracic aorta: No abnormalities are seen along the visualized portions of the thoracic aorta or the origins of the great vessels. Right carotid artery: Right common carotid artery, right carotid bifurcation and cervical portions of the right internal carotid artery all have a normal appearance. There is no indication of atheroscle rotic disease. Left carotid artery: Left common carotid artery, left carotid bifurcation and cervical portions of th e left internal carotid artery all have a normal appearance. There is no indication of atheroscleroti c disease. Posterior circulation: Mild dominance of the left vertebral artery is noted. There is no indication o f atherosclerotic disease along the course of the vertebral arteries. Both vertebral arteries contrib terrence to the basilar artery origin. Visualized portions of the proximal basilar artery have an unremark able appearance. The degree of stenosis, if any, is determined utilizing NASCET like criteria. In this case there is no indication of hemodynamically significant stenosis at the carotid bifurcations or elsewhere. Thyroid gland is enlarged in size and heterogeneous in attenuation consistent with multinodular goite r. Evaluation of the nonvascular soft tissue structures reveal no additional abnormality. There is no in dication of cervical lymphadenopathy. No abnormalities are seen along the course of the airway. Visua lized portions of the parotid glands and the submandibular salivary glands have a normal appearance. Evaluation of the lung apices reveals no evidence of lung nodule or infiltrate. Evaluation of the cer vical spine revealed no significant abnormalities. IMPRESSION: 1. No indication of hemodynamically significant stenosis at the carotid bifurcations or elsewhere. 2. Abnormal thyroid gland. Suspect multinodular thyroid goiter. Contrast dose report: Omnipaque 350: 100 ml, administered intravenously All CT examinations performed at this facility utilize modulated dose reduction, iterative reconstruc tion or weight-based dosing, as appropriate, to obtain a radiation dose which is as low as can reason ably be achieved. Signer Name: Ashwin Sheriff MD Signed: 06/07/2019 10:55 AM Workstation Name: [id number]
[2019-06-07] MEDS: ASPIRIN EC 81 MG TAB PO SCH (13:19)
--- NOTE | 2019-06-07 13:52 | Progress Note ---
Assessment and Plan Patient is a 43-year-old man with no significant past medical history, who p/w blurry vision of the left eye and left facial numbness, which resolved. According the patient's clinical findings, he has had an acute ischemic stroke.. Plan: 1. Stroke: - MRI brain: Left thalamic acute infarct CT head: No acute abnormality. Carotid ultrasound: No significant stenosis. - Echo: EF 55-60%, LA normal size, bubble study -ve. - CTA head and neck: no significant stenosis - Continue ASA - Recommend dual antiplatelet therapy for 30 days, with ASA 81mg daily and Plavix 75mg daily, after which plavix can be stopped. - Continue statin. Goal LDL <70. LDL 84. - Etiology of stroke is cryptogenic, therefore recommend for long-term cardiac monitoring outpatient with 30-day MCOT and ILR. - Follow up with neurology as outpatient in 4 weeks. - Telemetry monitoring while in house. - PT/OT/ST. - DVT prophylaxis: Recommend Lovenox. 2. Blood pressure: - Recommend target normotension, as patient's symptoms have resolved. - Will sign off. Please call with any questions. Thank you for allowing me to take part in the care of this patient. Jv Goodman MD Neurology Subjective Date of service: 06/07/19 Principal diagnosis: Stroke Interval history: No acute events overnight Objective - Exam Narrative Exam: Patient is alert, awake, oriented x4, follows complex commands. PERRL, EOMI, VFF, no facial weakness noted, tongue midline, b/l intact to LT. No dysarthria or aphasia noted. 5/5 strength in all extremities. B/l intact to LT. B/l intact to FTN and HTS. 2+ reflexes throughout. - Vital Sign Vital Signs - 12hr 06/07/19 04:12 Temperature 98.0 F Pulse Rate 64 Respiratory 16 Rate Blood Pressure 110/62 O2 Sat by Pulse 98 Oximetry - General Apperance Constitutional: comfortable - EENT EENT: ATNC, PERRL, mucous membranes moist, hearing intact, vision intact - Respiratory Respiratory: lungs clear, normal breath sounds - Cardiovascular Cardiovascular: regular rate, normal S1, normal S2 Extremities: no peripheral edema bilat, no inflammation, no ischemia or petechiae - Gastrointestinal Gastrointestinal: normoactive bowel sounds, soft, non-tender - Integumentary Integumentary: normal - Musculoskeletal Musculoskeletal: no fluid collection, no pain - Psychiatric Psychiatric: mood/affect appropriate - Laboratory Findings CBC and BMP: 06/04/19 16:13 06/04/19 16:13 Abnormal Lab Findings: Abnormal Labs 06/04/19 16:13 [place] % (Auto) 10.6 H Lymph # 1.1 L
[2019-06-07] MEDS ORDERED: CLOPIDOGREL 75 MG TAB PO SCH (14:00)
--- NOTE | 2019-06-07 14:17 | Discharge Summary ---
Providers - Providers Date of Admission: 06/06/19 16:14 Date of discharge: 06/07/19 Attending physician: EVELYN DE LEON 06/04/19 17:18 Consult to Physician [CONS] Routine Comment: Consulting Provider: CONNOR DANIELS Physician Instructions: Reason For Exam: cva/atypical migraine/[place] Palsy 06/06/19 16:01 Occupational Therapy Evaluate and Treat [CONS] Routine Comment: Reason For Exam: stroke Speech Therapy Evaluation and Treat [CONS] Routine Reason For Exam: stroke 06/06/19 16:02 Physical Therapy Evaluation and Treat [CONS] Routine Comment: Reason For Exam: stroke [facility] Condition: Fair Disposition: DC-01 TO HOME OR SELFCARE Core Measure Documentation - Palliative Care Palliative Care/ Comfort Measures: Not Applicable Exam - Constitutional Vitals: Temp Pulse Resp BP Pulse Ox 98.0 F 64 16 110/62 98 06/07/19 04:12 06/07/19 04:12 06/07/19 04:12 06/07/19 04:12 06/07/19 04:12 Plan Activity: no restrictions Diet: low fat, low cholesterol, low salt Special Instructions: other (can return to work Wednesday06/12/2019) Plan of Treatment: 1.Follow up with PCP in 1 week. 2.Follow up with Neurology for 1 week 3.Follow up with Cardiology, Dr. lilly for outpatient event monitor because of new stroke. Follow up with: HUBERT VASQUEZEMBARRASS MD CHRIS [Primary Care Provider] - 7 Days Prescriptions: Aspirin EC [Halfprin EC] 81 mg PO QDAY #30 tablet AtorvaSTATin [Lipitor] 40 mg PO QHS #30 tablet Clopidogrel [Plavix] 75 mg PO QDAY #30 tablet
[2019-06-07 17:37] VITALS: BP 118/72
== END 2019-06-07 18:35 | disposition home or self-care (01) | DRG 66 ==
LOC: ED 15:58 → 3A 16:53 → OBSVTOIN 06-06 16:14
PROVIDERS: ADMIT Internal Medicine; ATTEND Internal Medicine
DX: I63.9 Cerebral infarction, unspecified (principal); E66.9 Obesity, unspecified; Z68.30 Body mass index [BMI] 30.0-30.9, adult
CPT/HCPCS: 36415; 70450; 70496; 70498; 70551; 80048; 80061; 82962; 84439; 84443; 84484; 85025; 85610; 85670; 85730; 93005; 93010; 93306; 93880; G0378; A9270-GY; Q9967